=== PATIENT | female | born 1945 ===

== ENCOUNTER 2020-12-15 15:36 | Emergency (ER) | payer OTHER, MEDICARE, BC ==
[~2020-12-15] VITALS: Ht 152.4 cm; Wt 77.1 kg
[2020-12-15] MEDS ORDERED: PREG50 PO (16:56)
[2020-12-15] MEDS ORDERED: DULO60 PO (16:56)
[2020-12-15] MEDS ORDERED: ATOR40TA PO (16:56)
[2020-12-15] MEDS ORDERED: TRAM50 PO (17:00)
== END 2020-12-15 17:21 | disposition home or self-care (01) ==
LOC: ER 15:36
DX: M54.5 Low back pain (principal); M54.2 Cervicalgia; F17.210 Nicotine dependence, cigarettes, uncomplicated; Z79.899 Other long term (current) drug therapy; V43.62XA Car passenger injured in collision with other type car in traffic accident, initial encounter; Y92.410 Unspecified street and highway as the place of occurrence of the external cause
CPT/HCPCS: 72040; 99283-25

== ENCOUNTER 2021-09-24 11:55 | Inpatient (IN) | payer MEDICARE, BC ==
[~2021-09-24] VITALS: Ht 160 cm; Wt 77.6 kg
[~2021-09-24 11:55] MED LIST: TRAM50 PO
[2021-09-24 12:39] LABS: BASOPHILS ABSOLUTE AUTO 0.04 K/mm3 (0.00-0.23); BASOPHILS PERCENT AUTO 0 % (0-2); EOSINOPHILS PERCENT AUTO 0 % (0-6); Hematocrit 47.4 % (33.0-51.0); Hemoglobin 16.1 g/dL (11.5-16.0); IMMATURE GRAN ABSOLUTE AUTO 0.05 K/mm3 (0.00-0.10); IMMATURE GRAN PERCENT AUTO 1 % (0-1); LYMPHOCYTES ABSOLUTE AUTO 1.54 K/mm3 (0.84-5.20); LYMPHOCYTES PERCENT AUTO 15 % (21-46); MONOCYTES ABSOLUTE AUTO 0.67 K/mm3 (0.16-1.47); MONOCYTES PERCENT AUTO 6 % (4-13); Mean Corpuscular HGB 30.3 pg (26.0-34.0); Mean Corpuscular Volume 89 fL (80-100); Mean Platelet Volume 9.4 fL (9.1-12.4); NEUTROPHILS ABSOLUTE AUTO 8.12 K/mm3 (1.96-9.15); NEUTROPHILS PERCENT AUTO 78 % (41-73); Platelet Count 364 K/mm3 (150-400); RDW Coefficient Variation 12.9 % (11.7-14.2); RDW Standard Deviation 42.5 fL (35.1-46.3); Red Blood Cell Count 5.31 M/mm3 (3.80-5.20); White Blood Cell Count 10.42 K/mm3 (4.00-11.30)
[2021-09-24 12:59] LABS: Alanine Aminotransfer (ALT/SGP 52 U/L (12-78); Albumin, Blood 2.5 g/dL (3.4-5.0); Albumin/Globulin Ratio 0.5 (0.8-1.8); Alk Phos 97 U/L (50-136); Anion Gap 7 mmol/L (6-16); Aspartate Aminotrans (AST/SGOT 50 U/L (12-37); Bilirubin, Total 0.6 mg/dL (0.1-1.0); Blood Urea Nitrogen 16 mg/dL (8-24); Bun/Creatinine Ratio 21.6 (12.0-20.0); CO2, Blood 30 mmol/L (21-32); Calcium, Blood 9.3 mg/dL (8.5-10.1); Chloride, Blood 102 mmol/L (98-108); Creatinine, Blood 0.74 mg/dL (0.40-1.00); Glomerular Filtration Rate >60 (60-); Glucose, Blood 156 mg/dL (70-99); Potassium, Blood 3.3 mmol/L (3.5-5.5); Sodium, Blood 139 mmol/L (136-145); Total Protein, Blood 7.5 g/dL (6.4-8.2); Troponin I <0.015 ng/mL (0.000-0.040)
[2021-09-24 15:25] LABS: Influenza A, PCR NEGATIVE (NEGATIVE); Influenza B, PCR NEGATIVE (NEGATIVE); Resp Syncytial Virus, PCR NEGATIVE (NEGATIVE); SARS-Cov-2 (COVID-19) PCR, MMC POSITIVE (NEGATIVE)
[2021-09-24] MEDS ORDERED: ASPI81CH PO (16:29)
[2021-09-24] MEDS ORDERED: ATOR40TA PO (16:31)
[2021-09-24] MEDS ORDERED: FAMO20 PO (16:32)
[2021-09-24] MEDS ORDERED: PREG50 PO (16:33)
[2021-09-24] MEDS ORDERED: DULO60 PO (18:04)
[2021-09-24] MEDS ORDERED: MULVITA PO (18:05)
[2021-09-24] MEDS ORDERED: Indomethacin25 MG PO (18:05)
--- NOTE | 2021-09-25 04:29 | NUR ---
SHIFT SUMMARY: FELA WAS ADMITTED TO THE FLOOR FOR COPD, COVID-19 PNEUMONIA. NON-VACCINATED, LIVING WITH ROOM MATES THAT CONTRACTED THE VIRUS. HAS BEEN SOB FOR 3-4 DAYS PRIOR TO COMING TO THE HOSPTIAL. SATS IN THE 80'S ON ARRIVAL TO ER. 90'S ON 4 LITERS WHEN SHE ARRIVED TO THE FLOOR. LUNG SOUNDS RHONCI T/O. COUGH IS PRODUCTIVE OF THIN CLEAR SPUTUM. AOX3, PLEASANT AND COOPERATIVE. 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 GOOD APPETITE, NO CHANGE IN TASTE BUDS. INDEPENDENT TO BSC. IVF STARTED AND INFUSED T/O THE NIGHT. VS WNL, AFEBRILE. NO PAIN. SLEPT WELL T/O SHIFT. CALL LIGHT IN REACH AND USED APPROPRIATLY.
[2021-09-25 05:15] LABS: Hematocrit 43.7 % (33.0-51.0); Hemoglobin 14.4 g/dL (11.5-16.0); Mean Corpuscular HGB 30.3 pg (26.0-34.0); Mean Corpuscular Volume 92 fL (80-100); Mean Platelet Volume 9.7 fL (9.1-12.4); Platelet Count 294 K/mm3 (150-400); RDW Coefficient Variation 12.9 % (11.7-14.2); RDW Standard Deviation 43.5 fL (35.1-46.3); Red Blood Cell Count 4.75 M/mm3 (3.80-5.20); White Blood Cell Count 7.34 K/mm3 (4.00-11.30)
[2021-09-25 06:23] LABS: Alanine Aminotransfer (ALT/SGP 47 U/L (12-78); Albumin, Blood 2.3 g/dL (3.4-5.0); Albumin/Globulin Ratio 0.6 (0.8-1.8); Alk Phos 85 U/L (50-136); Anion Gap 9 mmol/L (6-16); Aspartate Aminotrans (AST/SGOT 38 U/L (12-37); Bilirubin, Total 0.4 mg/dL (0.1-1.0); Blood Urea Nitrogen 16 mg/dL (8-24); Bun/Creatinine Ratio 23.1 (12.0-20.0); CO2, Blood 25 mmol/L (21-32); Calcium, Blood 8.6 mg/dL (8.5-10.1); Chloride, Blood 107 mmol/L (98-108); Creatinine, Blood 0.69 mg/dL (0.40-1.00); Ferritin, Serum 231 ng/mL (8-252); Glomerular Filtration Rate >60 (60-); Glucose, Blood 114 mg/dL (70-99); Magnesium, Blood 1.9 mg/dL (1.6-2.4); Potassium, Blood 4.6 mmol/L (3.5-5.5); Sodium, Blood 141 mmol/L (136-145); Total Protein, Blood 6.3 g/dL (6.4-8.2)
--- NOTE | 2021-09-25 19:02 | NUR ---
PT AAOX4, VITALS STABLE ,CONTINUE ON 02 THERAPY FOR COVID, NO ACUTE DISTRESS NOTED, PT ASSISTED TO BED SIDE CHAIR, ABLE TO USE COMMODE,COMPLIANT WITH SAFETY PRECAUTIONS. CALL LIGHT WITHIN REACH WILL CONTINUE TO MONITOR.
--- NOTE | 2021-09-26 04:30 | NUR ---
SHIFT SUMMARY: WAS PLACED ON CONTINUOUS PULSE OX WITH AN AVERAGE SATS 95% ON 3 LITERS WHILE AWAKE. DURING SLEEP SHE WOULD DROP DOWN TO 87-88%. INCREASED TO 4 1/2-5 LITERS WHILE ASLEEP. DID NOT ON SEVERAL OCCATIONS HR DROPPED DOWN LOW 39 BUT NEVER SUSTAINED. LUNG SOUNDS IMPROVING, CRACKLES IN BASES, COUGH PRODUCTIVE. INDEPENDENT TO BSC. VS WNL, AFEBRILE. WILL CONTINUE TO MONITOR.
[2021-09-27 05:35] LABS: BASOPHILS ABSOLUTE AUTO 0.01 K/mm3 (0.00-0.23); BASOPHILS PERCENT AUTO 0 % (0-2); EOSINOPHILS PERCENT AUTO 0 % (0-6); Hematocrit 43.2 % (33.0-51.0); Hemoglobin 14.5 g/dL (11.5-16.0); IMMATURE GRAN ABSOLUTE AUTO 0.05 K/mm3 (0.00-0.10); IMMATURE GRAN PERCENT AUTO 0 % (0-1); LYMPHOCYTES ABSOLUTE AUTO 1.31 K/mm3 (0.84-5.20); LYMPHOCYTES PERCENT AUTO 12 % (21-46); MONOCYTES ABSOLUTE AUTO 0.26 K/mm3 (0.16-1.47); MONOCYTES PERCENT AUTO 2 % (4-13); Mean Corpuscular HGB Conc 33.6 g/dL (31.5-36.5); Mean Corpuscular Volume 89 fL (80-100); Mean Platelet Volume 9.8 fL (9.1-12.4); NEUTROPHILS ABSOLUTE AUTO 9.81 K/mm3 (1.96-9.15); NEUTROPHILS PERCENT AUTO 86 % (41-73); Platelet Count 444 K/mm3 (150-400); RDW Coefficient Variation 12.7 % (11.7-14.2); RDW Standard Deviation 41.9 fL (35.1-46.3); Red Blood Cell Count 4.84 M/mm3 (3.80-5.20); White Blood Cell Count 11.44 K/mm3 (4.00-11.30)
--- NOTE | 2021-09-27 06:05 | NUR ---
NECK CUTTER SUMMARY NO ACUTE CHANGES THIS SHIFT. PT REMAINS ON 5L O2 VIA NC, O2 SATS 90-92%. DOES DESAT TO MID 80'S AT TIMES WITH ACTIVITY. PRODUCING THICK CLEAR SPUTUM AT TIMES. VSS, WILL CONTINUE TO MONITOR.
[2021-09-27 06:22] LABS: Anion Gap 9 mmol/L (6-16); Blood Urea Nitrogen 25 mg/dL (8-24); Bun/Creatinine Ratio 28.9 (12.0-20.0); CO2, Blood 25 mmol/L (21-32); Calcium, Blood 8.6 mg/dL (8.5-10.1); Chloride, Blood 104 mmol/L (98-108); Creatinine, Blood 0.87 mg/dL (0.40-1.00); Glomerular Filtration Rate >60 (60-); Glucose, Blood 137 mg/dL (70-99); Potassium, Blood 4.2 mmol/L (3.5-5.5); Sodium, Blood 138 mmol/L (136-145)
--- NOTE | 2021-09-27 18:14 | NUR ---
PT AAOX4,STABLE ON 5L,02 N/C NO ACUTE DISTRESS NOTED,CONT ON DROPLET PRECAUTIONS,POC REVIEWED WITH PT, APPETITE ADEQUATE IN ALL MEALS, 1 ASSISTED WITH ADLS, CALL IN PLACE AND ENCOURAGED TO ASK FOR HELP WHEN NEEDED, DENIES PAIN ALL SHIFT. WILL CONT TO MONITOR.
--- NOTE | 2021-09-28 04:20 | NUR ---
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 breath sounds are coarse, patient is currently on 6 liters of high flow to maintain between 88-93% No complaints of discomfort overnight
--- NOTE | 2021-09-28 18:51 | NUR ---
PT AAOX4,VITALS WNL.IN NO DISTRESS AT MOMENT, 02 @5L N/C,SATURATIONS BETWEEN 88-93%, APPETITE ADEQUATE IN ALL MEALS, DENIES PAIN, CALL LIGHT WITHIN REACH,WILL CONTINUE TO MONITOR.
--- NOTE | 2021-09-29 06:56 | NUR ---
O2 DECREASED TO 5 LITERS WITHOUT DIFFICULTY. MAINTAINED 02 BETWEEN 92-25%. NO C/O DISCOMFORT
--- NOTE | 2021-09-29 18:04 | NUR ---
PT AAOX4, CONTINUE WITH 02 THERAPY VIA N/C 6L, NO ACUTE DISTRESS NOTED, PT HAD A WASH UP, FELT BETTER, POC REVIEWED WITH PT,NO S/S OF PAIN , APPETITE EXCELLENT, CONT ON COVID PRECAUTIONS.STABLE AT MOMENT, CALL LIGHT IN PLACE, RAC IV PATENT, SITE CLEANED.WILL CONTINUE TO MONITOR.
--- NOTE | 2021-09-30 03:25 | NUR ---
PATIENT ASKING ABOUT POSSIBILITY OF REHAB IN OR NEAR [facility] WHERE SHE WILL BE MOVING IN WITH HER SON WHEN THERAPY IS COMPLETED. SHIRLEY SLEPT WELL OVERNIGHT. HAD NO COMPLAINTS OF PAIN OR DISCOMFORT. LUNG SOUNDS REMAIN COARSE WITH SCATTERED WHEEZES AND RHONCHI IN UPPER LOBES. COUGH STILL HARSH AND LOOSE SOUNDING, BUT NONPRODUCTIVE
[2021-09-30] MEDS ORDERED: ACET325 PO (12:00)
[2021-09-30] MEDS ORDERED: ASPI81CH PO (12:00)
[2021-09-30] MEDS ORDERED: TRAM50 PO (12:00)
[2021-09-30] MEDS ORDERED: ASCO500 PO (12:00)
[2021-09-30] MEDS ORDERED: GUAI600T33 PO (12:00)
[2021-09-30] MEDS ORDERED: ZINC220 PO (12:01)
[2021-09-30] MEDS ORDERED: Vitamin D1000 UNI1 PO (12:01)
[2021-09-30] MEDS ORDERED: DECADRON6 M2 PO (12:01)
--- NOTE | 2021-09-30 16:38 | NUR ---
PT AAOX4, CONTINUE ON 02 THERAPY FOR COVID,SATURATIONS 91 TO 95% ON 5L VIA N/C,STABLE AT BASELINE WITH AN EXCELLENT APPETITE. LS JEANINE,PT D/C'D TO [facility].LEFT THE UNIT VIA W/C ACCOMPANIED BY EMT STAFF,DENIES PAIN,NO RESP DISTRESS NOTED.
== END 2021-09-30 16:27 | DRG 177 ==
LOC: ER 11:55 → ERHOLD 16:26 → MEDS 19:58 → ENPENDDIS 09-30 11:17 → MEDS 09-30 16:27
PROVIDERS: Internal Medicine; Physician Assistant; ADMIT Internal Medicine
PROC: 8E0ZXY6 Isolation (ICD-10-PCS; principal; 2021-09-24)
PROC: 3E02340 Introduction of Influenza Vaccine into Muscle, Percutaneous Approach (ICD-10-PCS; 2021-09-24)
PROC: 3E0333Z Introduction of Anti-inflammatory into Peripheral Vein, Percutaneous Approach (ICD-10-PCS; 2021-09-24)
PROC: XW033E5 Introduction of Remdesivir Anti-infective into Peripheral Vein, Percutaneous Approach, New Technology Group 5 (ICD-10-PCS; 2021-09-25)
DX: U07.1 COVID-19 (principal); J12.82 Pneumonia due to coronavirus disease 2019; J96.01 Acute respiratory failure with hypoxia; J44.0 Chronic obstructive pulmonary disease with (acute) lower respiratory infection; Z66 Do not resuscitate; G62.9 Polyneuropathy, unspecified; F17.210 Nicotine dependence, cigarettes, uncomplicated; E78.5 Hyperlipidemia, unspecified; Z23 Encounter for immunization; G89.29 Other chronic pain; M54.9 Dorsalgia, unspecified; Z90.49 Acquired absence of other specified parts of digestive tract; Z98.890 Other specified postprocedural states; Z79.899 Other long term (current) drug therapy
CPT/HCPCS: 0241U; 36415; 71045; 71046; 80048; 80053; 82728; 83605; 83735; 83880; 84484; 85025; 85027; 85379; 86140; 87040; 93005; 93010; 94640; 94760; 94762; 96365; 96366; 96375; 99285-25; A9270; J1100; J1650; J1940; J2405; J2930; J3480; J7030